=== PATIENT | male | born 1945 | race Caucasian/White ===

== ENCOUNTER → 2024-04-26 | Day surgery (SDC) | payer MEDICARE, OTHER ==
[~2024-04-26] MED LIST: Dexamethasone 4 MG/ML 5 ML MDV ONE; EPINEPHrine 1 MG/ML SDV ONE; Glycopyrrolate 0.2 MG/ML 2 ML SDV ONE; Lactated Ringers 1,000 ML ONE; Ondansetron 4 MG/2 ML SDV IVPUSH PRN; Propofol 200 MG/20 ML SDV ONE; Ropivacaine 0.5% 5 MG/ML 30 ML SDV ONE; Sodium Chloride 0.9% 10 ML Syringe FLUSH PRN; Sodium Chloride 0.9% 10 ML Syringe FLUSH SCH; ceFAZolin 2 GM Vial ONE; dexmedeTOMIDine HCl 200 MCG/2 ML SDV ONE; ePHEDrine 50 MG/ML SDV ONE; fentaNYL 100 MCG/2 ML SDV IVPUSH PRN
[2024-04-26] MEDS: Lactated Ringers 1,000 ML IV SCH (09:15)
[2024-04-26] MEDS: Morphine 8 MG, EPINEPHrine 0.3 MG, Cefuroxime 750 MG, Ketorolac 30 MG, Sodium Chloride ... PRN (11:28)
[2024-04-26] MEDS: Tranexamic Acid 1,000 MG/10 ML Vial ONE (11:34)
[2024-04-26] MEDS: VANCOmycin 1 GM SDV ONE (11:34)
[2024-04-26] MEDS: oxyCODONE 5 MG Tab PO PRN (14:15)
== END | disposition home or self-care (01) ==
LOC: JD.SDS 09:10
PROVIDERS: ATTEND Orthopaedic Surgery
DX: M17.12 Unilateral primary osteoarthritis, left knee (principal); I10 Essential (primary) hypertension; G20.A1 Parkinson's disease without dyskinesia, without mention of fluctuations; N40.0 Benign prostatic hyperplasia without lower urinary tract symptoms; E03.9 Hypothyroidism, unspecified; Z79.890 Hormone replacement therapy; Z79.899 Other long term (current) drug therapy
CPT/HCPCS: 0055T; 27447; 64447; 73560; 97116; 97162; 97530; A9270; C1713; C1776; J0171; J0690; J0697; J1100; J1596; J1885; J2272; J2704; J2795; J7120; 01402; 99100; J3490